=== PATIENT | male | born 1965 | race Caucasian/White ===

== ENCOUNTER 2020-02-06 05:20 | Day surgery (SDC) | payer BC, OTHER ==
[2020-02-06] MEDS ORDERED: Lactated Ringers 1,000 ML IV SCH (06:00)
[2020-02-06] MEDS ORDERED: Bupivacaine 0.5% 30 ML SDV ONE ×2 (06:30→07:12)
[2020-02-06] MEDS ORDERED: Nozin Nasal Sanitizer NASBOTH ONE (06:30)
[2020-02-06] MEDS ORDERED: Midazolam 1 MG/ML 2 ML SDV ONE ×2 (07:10→08:48)
[2020-02-06] MEDS ORDERED: Propofol 200 MG/20 ML SDV ONE ×4 (07:10→09:48)
[2020-02-06] MEDS ORDERED: fentaNYL 100 MCG/2 ML SDV ONE (07:10)
[2020-02-06] MEDS ORDERED: ceFAZolin 2 GM in Premix Bag 1 BAG IV ONE (07:30)
[2020-02-06] MEDS ORDERED: Labetalol 20 MG/4 ML Syringe ONE (09:31)
[2020-02-06] MEDS ORDERED: Lactated Ringers 1,000 ML ONE (10:18)
[2020-02-06] MEDS ORDERED: Labetalol 20 MG/4 ML Syringe IVPUSH ONE ×2 (10:57→11:19)
[2020-02-06] MEDS ORDERED: Acetaminophen/oxyCODONE 325-5 MG Tab PO PRN (13:05)
--- NOTE | 2020-02-20 17:40 | OR ---
DATE OF PROCEDURE: 02/06/2020 SURGEON: Dylon Kim MD PREOPERATIVE DIAGNOSES: 1. Partial rotator cuff tear. 2. Possible superior labral tear from anterior to posterior. POSTOPERATIVE DIAGNOSES: 1. Partial supraspinatus tear, approximately 50%. 2. Partial subscapularis tear, approximately 40%. 3. Complex superior labral tear from anterior to posterior. PROCEDURES: 1. Arthroscopy of left shoulder with repair of SLAP lesion and debridement of labrum. 2. Repair of subscapularis. 3. Repair of supraspinatus. ANESTHESIA: Regional block with general. INDICATIONS: Yifan is a 54-year-old gentleman who sustained an injury to his left shoulder in a fall. He has persistent pain despite physical therapy. Exam and MRI are consistent with partial-thickness rotator cuff tear, mostly in the midsubstance or musculotendinous junction and a possible labral tear. He presents for arthroscopy of the left shoulder with repair of rotator cuff and evaluation of the labrum for repair if necessary. Risks, benefits, and potential complications of the procedure were discussed. DESCRIPTION OF PROCEDURE: After adequate general anesthesia was obtained, the patient was placed in a lateral decubitus position and secured with a yao bag positioner. Left shoulder and arm were then prepped and draped in a sterile fashion, and 15 pounds of traction was placed through the traction unit. A standard posterior portal was established and glenohumeral joint was inspected. This revealed significant tear of the anterior and superior labrum with the anterior portion being macerated and very frayed. The superior labrum also had peel back with loss of stability of the biceps anchor, consistent with a complex SLAP tear. Articular cartilage of the humeral head was intact. Some mild scuffing noted along the anterior edge of the glenoid. The biceps tendon itself was intact. Undersurface of the rotator cuff showed a partial-thickness tear, approximately 50% thickness. This was just off the edge of the footprint medially in the mid-substance. Anterior portal was established and the anterior labrum was debrided. This resulted in loss of a portion of the anterior labrum, which was macerated. Once this was cleared, the subscapularis was evaluated, and this revealed a tear of the superior portion as well. There was approximately a 40% tear of the superior edge. This was mostly intrasubstance of the tendon without detachment from its insertion. A probe was inserted and used to further evaluate the labrum, which was found to be unstable superiorly. A decision was made to proceed with the labral repair. Accessory portal was established essentially through the partial-thickness tear of the subscapularis and will be repaired after removal of the cannula and completion of the intra-articular repair. Shaver was introduced and the superior edge of the glenoid was debrided. A tiffanie was then used to lightly decorticate the area. Drill guide was then placed along the superior edge of the glenoid just posterior to the biceps tendon. This was drilled and a Mitek Gryphon anchor was placed. The process was repeated just anterior to the biceps for a 2nd anchor. A curved bird beak suture grasper was then utilized to pass one limb of each of the suture pairs through the labrum. Sutures were then tied down using standard arthroscopic technique with 2 sutures posterior to the biceps and 2 anterior to the biceps. Upon completion of the repair, the labrum was probed and found to be very stable. Attention was then turned to the subscapularis, which was lightly debrided and 2 sutures were then passed around the tear in a superior to inferior direction completing an intrasubstance repair. The scope was then withdrawn and placed into the subacromial space. Bursa was cleared for visualization. Significant synovitis was noted intra-articularly as well as in the bursa. A portion of the coracoacromial ligament was debrided back along with the anterolateral edge of the acromion. The area of the tear was identified and further evaluated. It was found to be a relatively small section, again partial thickness. A decision was made to proceed with a [id number] repair of this as it did not involve any significant portion of the footprint. After evaluating options and angles for this, decision was made to proceed with a mini-open repair of this. Scope was withdrawn. Lateral portal was extended and carried down through the subcutaneous tissues, and the deltoid was then split in line with its fibers. Self-retaining retractor was placed, and the cuff tear was identified. FiberWire suture was then placed and tied down in a [id number] fashion. A second suture was placed more medial to this. The remainder of the cuff was intact. The deltoid was then repaired in [id number] fashion with 2-0 Vicryl. Skin was closed with 2-0 Vicryl and running 3-0 Monocryl. Monocryl was used on the additional port sites and Steri-Strips were applied. Sterile dressing was then placed. The patient tolerated the procedure well. There were no complications. He was taken from the operating room in stable condition. Dylon Kim MD /[id number]
== END 2020-02-06 13:40 | disposition home or self-care (01) ==
LOC: JP.SDS 05:20
PROVIDERS: ATTEND Specialist
DX: S46.012A Strain of muscle(s) and tendon(s) of the rotator cuff of left shoulder, initial encounter (principal); S46.812A Strain of other muscles, fascia and tendons at shoulder and upper arm level, left arm, initial encounter; S43.432A Superior glenoid labrum lesion of left shoulder, initial encounter; E78.5 Hyperlipidemia, unspecified; W19.XXXA Unspecified fall, initial encounter
CPT/HCPCS: 29807; 29827; 36415; 80053; 85027; A9270; C1713; J0690; J2250; J2704; J3010; J3490; J7120

== ENCOUNTER 2025-02-04 19:58 | Emergency (ER) | payer BC, OTHER ==
[2025-02-04] MEDS ORDERED: Sodium Chloride 0.9% 10 ML Syringe FLUSH PRN (21:05)
[2025-02-04 21:18] LABS: BASOPHILS ABSOLUTE AUTO 0.09 K/uL (0.00-0.10); BASOPHILS PERCENT AUTO 0.7 % (0.1-1.3); EOSINOPHILS ABSOLUTE AUTO 0.09 K/uL (0.00-0.40); EOSINOPHILS PERCENT AUTO 0.7 % (0.0-5.4); HEMATOCRIT 28.4 % (38.4-49.7); HEMOGLOBIN 10.2 g/dL (12.9-16.9); IMMATURE GRAN ABSOLUTE AUTO 0.12 K/uL (0.00-0.23); IMMATURE GRAN PERCENT AUTO 0.9 % (0.0-0.7); LYMPHOCYTES ABSOLUTE AUTO 1.78 K/uL (0.8-3.3); LYMPHOCYTES PERCENT AUTO 13.5 % (11.4-47.7); MEAN CORPUSCULAR HEMOGLOBIN 32.9 pg (31.6-35.5); MEAN CORPUSCULAR HGB CONC 35.9 g/dL (31.6-35.5); MEAN CORPUSCULAR VOLUME 91.6 fL (81.4-99.0); MONOCYTES ABSOLUTE AUTO 0.91 K/uL (0.20-0.90); MONOCYTES PERCENT AUTO 6.9 % (3.3-12.6); NEUTROPHILS ABSOLUTE AUTO 10.18 K/uL (1.0-7.6); NEUTROPHILS PERCENT AUTO 77.3 % (40.0-78.1); PLATELET COUNT,PLT 235 K/uL (130-375); WHITE BLOOD CELL COUNT,WBC 13.2 K/uL (3.2-11.0)
[2025-02-04] MEDS: Sodium Chloride 0.9% 1,000 ML IV SCH (21:20)
[2025-02-04 21:40] LABS: A/G RATIO 1.4 (1.2-2.2); ALANINE AMINOTRANSFERASE,ALT 42 U/L (12-78); ALBUMIN 3.8 g/dL (3.4-5.0); ALKALINE PHOSPHATASE 51 U/L (46-116); ANION GAP 12.6 mmol/L (5.0-14.0); ASPARTATE AMNIOTRANSFERASE,AST 29 U/L (15-37); BILIRUBIN TOTAL 0.5 mg/dL (0.2-1.0); BLOOD UREA NITROGEN,BUN 43 mg/dL (7-18); CALCIUM 8.8 mg/dL (8.5-10.1); CARBON DIOXIDE,CO2 23 mmol/L (21-32); CHLORIDE,CL 104 mmol/L (100-108); CREATININE 1.5 mg/dL (0.8-1.3); EST CRCL DRUG DOSING (CG) 54.75 mL/min; ESTIMATED GFR 53 mL/min (>60); GLUCOSE RANDOM 144 mg/dL (74-106); POTASSIUM,K 4.2 mmol/L (3.6-5.2); PROTEIN TOTAL,TP 6.5 g/dL (6.4-8.2); SODIUM,NA 140 mmol/L (140-148)
[2025-02-04] MEDS: Ondansetron 4 MG/2 ML SDV IVPUSH ONE (22:20)
[2025-02-04 22:41] LABS: APPEARANCE,URINE CLEAR (CLEAR); BILIRUBIN,URINE NEGATIVE (NEGATIVE); COLOR,URINE YELLOW (YELLOW); GLUCOSE,URINE NEGATIVE (NEGATIVE); KETONES,URINE NEGATIVE (NEGATIVE); LEUKOCYTE ESTERASE,URINE NEGATIVE (NEGATIVE); NITRITE,URINE NEGATIVE (NEGATIVE); OCCULT BLOOD,URINE NEGATIVE (NEGATIVE); PH,URINE 5.5 (5.0-8.0); PROTEIN,URINE NEGATIVE (NEGATIVE); UROBILINOGEN,URINE 0.2 EU/dL (0.2-1.0)
[2025-02-04 22:55] LABS: BACTERIA,URINE FEW; EPITHELIAL CELLS,URINE FEW; MUCUS,URINE NOT SEEN; RBC,URINE 0-5 (0-5); WBC,URINE 0-5 (0-5)
[2025-02-04] MEDS ORDERED: Polyethylene Glycol 3350 Powder 238 GM Bot PO ONE (23:51)
== END 2025-02-05 00:36 | disposition home or self-care (01) ==
LOC: JP.ED 19:58
DX: K52.9 Noninfective gastroenteritis and colitis, unspecified (principal); E78.00 Pure hypercholesterolemia, unspecified; E03.9 Hypothyroidism, unspecified; Z86.16 Personal history of COVID-19; Z79.890 Hormone replacement therapy; Z79.899 Other long term (current) drug therapy
CPT/HCPCS: 36415; 80053; 81001; 83605; 85025; 93005; 96361; 96374; 99285; A9270; J2405; J7030; 93010; 99283

== ENCOUNTER 2025-02-05 07:11 | Day surgery (SDC) | payer OTHER ==
[2025-02-05] MEDS: Lactated Ringers 1,000 ML IV SCH (07:56)
[2025-02-05] MEDS ORDERED: Propofol 200 MG/20 ML SDV ONE ×2 (08:29→09:13)
[2025-02-05] MEDS ORDERED: fentaNYL 100 MCG/2 ML SDV ONE (08:29)
[2025-02-05] MEDS ORDERED: Midazolam 1 MG/ML 2 ML SDV ONE (08:29)
[2025-02-05] MEDS ORDERED: Sodium Chloride 0.9% 10 ML Syringe FLUSH ONE (10:29)
[2025-02-05] MEDS ORDERED: Sodium Chloride 0.9% 80 ML IV SCH (10:30)
[2025-02-05] MEDS ORDERED: Iopamidol 612 MG/ML 100 ML Bottle IV SCH (10:30)
[2025-02-05 10:38] LABS: ANION GAP 11.4 mmol/L (5.0-14.0); CALCIUM 8.3 mg/dL (8.5-10.1); CREATININE 1.2 mg/dL (0.8-1.3); EST CRCL DRUG DOSING (CG) 68.44 mL/min; POTASSIUM,K 4.1 mmol/L (3.6-5.2)
== END 2025-02-05 11:32 | disposition home or self-care (01) ==
LOC: JP.SDS 07:11
PROVIDERS: ATTEND Surgery
DX: D12.4 Benign neoplasm of descending colon (principal); D12.5 Benign neoplasm of sigmoid colon; D12.7 Benign neoplasm of rectosigmoid junction; K62.1 Rectal polyp; K26.9 Duodenal ulcer, unspecified as acute or chronic, without hemorrhage or perforation; K52.9 Noninfective gastroenteritis and colitis, unspecified; E78.00 Pure hypercholesterolemia, unspecified; E03.9 Hypothyroidism, unspecified; Z86.16 Personal history of COVID-19; Z79.890 Hormone replacement therapy; Z79.899 Other long term (current) drug therapy
CPT/HCPCS: 00813; 36415; 43239; 45380; 45381; 45385; 71260; 74177; 80048; 80053; 81001; 82378; 83605; 85025; 93005; 93010; 96361; 96374; 99283; 99285; A9270; J2250; J2405; J2704; J3010; J7030; J7120; 88305